=== PATIENT | male | born 1970 | race African-American/Black ===

== ENCOUNTER 2016-10-14 15:31 | Emergency (ER) | payer OTHER ==
[2016-10-14] MEDS ORDERED: Ketorolac Tromethamine 60 MG/2 ML VIAL ONE (15:57)
--- NOTE | 2016-10-14 17:10 | PICIS ---
[facility] EMERGENCY RECORD TRIAGE (15:42 LGIB) PATIENT: NAME: Sergei Kang, AGE: 45, GENDER: male, : Fri1970, TIME OF GREET: FriOct 14, 2016 15:31, PREFERRED LANGUAGE: Kiswahili, ETHNICITY: Not or , ECODE BILLING MAP: [facility], SSN: [id number], Zip Code: [address], KG WEIGHT: 92.99, PHONE: , , , PERSON ID: [id number], PCP: MD Castillo Kyle. TRIAGE NOTES: chronic back pain but today feels like he pulled his back. having sharp pain. had Tylenol-3 [id number]. COMPLAINT: back pain. ADMISSION: URGENCY: 4 Non Urgent, ADMISSION SOURCE: Home, TRANSPORT: CAR, BED: ER -03. PROVIDERS: TRIAGE NURSE: Sulema Taylor RN. KNOWN ALLERGIES No Known Drug Allergies CURRENT MEDICATIONS (15:43 LGIB) None VITAL SIGNS VITAL SIGNS: BP: 130/82, Pulse: 58, Resp: 16 (Non-Labored), Temp: 98.2 (Oral), Pain: 10, O2 sat: 97 on Room Air, Time: 10/14/2016 15:50. (15:50 LGIB) BP: 120/69, Pulse: 65, Resp: 16 (Non-Labored), Pain: 6, O2 sat: 97 on Room Air, Time: 10/14/2016 16:45. (16:45 LGIB) NURSING ASSESSMENT: BACK (15:55 LGIB) CONSTITUTIONAL: Complex assessment performed, Patient arrives, via hospital wheelchair, Gait steady, History obtained from patient, Patient appears, in distress due to pain, Patient cooperative, Patient alert, Oriented to person, place and time, Skin warm, Skin dry, Skin normal in color, Mucous membranes pink, Mucous membranes moist, Patient is well-groomed, Patient complains of back pain, strained back this morning. pt with chronic back pain from a previous injury. PAIN: aching pain, to the lower back, Onset of pain 10/14/2016, on a scale 0-10 patient rates pain as 10, Nothing has been tried to alleviate the pain. BACK: Right radial pulse +3(easily palpated, considered normal), Left radial pulse +3(easily palpated, considered normal), Left dorsalis pedis pulse +3(easily palpated, considered normal), Right dorsalis pedis pulse +3(easily palpated, considered normal). NECK: Neck assessment findings include trachea midline. SAFETY: Side rails up, Cart/Stretcher in lowest position, Family at bedside, Call light within reach, Hospital ID band on. NURSING PROCEDURE: DISCHARGE NOTE (16:45 LGIB) DISCHARGE: Patient discharged to home, ambulating without &a-1R&a+25V*p+0X*m5261G*c202B*c15G*c2P*p-0X&a-25V&a+1R Name: Sergei Kang : 1970 M45 MedRec: [id number] AcctNum: [id number] Prepared: [facility] Oct 17, 2016 10:53 by Interface Page 1 of 6 pMD [facility] EMERGENCY RECORD assistance, family driving, accompanied by //partner, Summary of Care printed/ provided, Patient requested and was provided an electronic copy of Discharge Instructions, Discharge instructions given to patient, Simple or moderate discharge teaching performed, Prescriptions given and instructions on side effects given, Above person(s) verbalized understanding of discharge instructions and follow-up care, Patient treated and evaluated by physician. BELONGINGS: Belongings and valuables with patient at time of discharge include:, Belongings remain with patient, Valuables remain with patient. MEDICATION ADMINISTRATION SUMMARY Drug Name: ketorolac intramuscular, Dose Ordered: 60 mg, Route: Intramuscular, Status: Given, Time: 16:05 10/14/2016, Drug Name: morphine injection, Dose Ordered: 8 mg, Route: Intramuscular, Status: Given, Time: 16:03 10/14/2016, Detailed record available in Medication Service section. MEDICATION SERVICE ketorolac intramuscular: Order: ketorolac intramuscular (ketorolac tromethamine) - Dose: 60 mg : Intramuscular Ordered by: Tao Benson DO Entered by: Tao Benson DO FriOct 14, 2016 15:49 , Acknowledged by: Sulema Taylor RN FriOct 14, 2016 15:51 Documented as given by: Sulema Taylor RN FriOct 14, 2016 16:05 Patient, Medication, Dose, Route and Time verified prior to administration. IM medication, Medication administered to right buttock, Correct patient, time, route, dose and medication confirmed prior to administration, Patient advised of actions and side-effects prior to administration, Allergies confirmed and medications reviewed prior to administration, Patient in position of comfort, Side rails up, Cart in lowest position, Family at bedside. : Follow Up : Decreased pain. (16:46 LGIB) morphine injection: Order: morphine injection (morphine sulfate) - Dose: 8 mg : Intramuscular Schedule: Now Ordered by: Tao Benson DO Entered by: Tao Benson DO FriOct 14, 2016 15:49 , Acknowledged by: Sulema Taylor RN FriOct 14, 2016 15:51 Documented as given by: Sulema Taylor RN FriOct 14, 2016 16:03 Patient, Medication, Dose, Route and Time verified prior to administration. IM medication, Medication administered to left buttock, Correct patient, time, route, dose and medication confirmed prior to administration, Patient advised of actions and side-effects prior to administration, Allergies confirmed and medications reviewed prior to administration, Patient in position of comfort, Side rails up, Cart in lowest position, Family at bedside. &a-1R&a+25V*p+0X*q7560A*c202B*c15G*c2P*p-0X&a-25V&a+1R Name: Sergei Kang : 1970 M45 MedRec: [id number] AcctNum: [id number] Prepared: FriOct 17, 2016 10:53 by Interface Page 2 of 6 pMD [facility] EMERGENCY RECORD : Follow Up : Decreased pain. (16:46 LGIB) HPI BACK (21:29 MBRI) CHIEF COMPLAINT: Patient presents for evaluation of pain, to the lower back. HISTORIAN: History provided by patient. MECHANISM OF INJURY: No domestic violence associated with this incident, Not work related, Pt bent to tie his shoes and felt his back strain. He then sneezed and felt it get much worse. LOCATION: Symptoms are localized to the back, left lumbar region, right lumbar region, No radiation back to front, No radiation to the groin, Pain has not moved in location over time. QUALITY: Pain is dull in nature, described as aching. SEVERITY: Maximum severity of symptoms severe, Currently symptoms are severe. TIME COURSE: Sudden onset of symptoms, 1 day, Symptoms are worsening. ASSOCIATED WITH: No associated symptoms, No associated abdominal pain, No associated bladder incontinence, No associated bowel incontinence, No associated dysuria, No associated fever, No associated inability to ambulate, No associated motor weakness, No associated numbness, No associated problems with urination, No associated radiation of pain, No associated tingling, Denies any other complaints. EXACERBATED BY: Patient's condition exacerbated by extension, Patient's condition exacerbated by flexion, Patient's condition exacerbated by movement, Patient's condition exacerbated by rotation, Patient's condition exacerbated by walking. RELIEVED BY: Patient's condition relieved by nothing. RISK FACTORS: No malignancy risks identified, No herniated disc risks identified, No risk factors for thoracic aortic dissection, No abdominal aortic aneurysm risk factors, No epidural bleed risk factors, No epidural abcess risk factors. ROS (21:29 MBRI) CONSTITUTIONAL: Negative constitutional review of systems, Historian denies chills, denies fever. EYES: Negative eye review of systems. ENT: Historian denies rhinorrhea, denies sore throat. CARDIOVASCULAR: Historian denies chest pain, denies dyspnea on exertion. RESPIRATORY: Historian denies cough, denies shortness of breath. GI: Negative gastrointestinal review of systems, Historian denies abdominal pain, denies diarrhea, denies nausea, denies vomiting. GENITOURINARY MALE: Historian denies dysuria, denies hematuria, denies incontinence, denies urinary frequency, denies urine output changes, denies urinary retention. MUSCULOSKELETAL: Historian reports back pain, denies fall, denies injury, denies neck pain. . SKIN: Negative skin review of systems, Historian denies skin changes. &a-1R&a+25V*p+0X*y8803O*c202B*c15G*c2P*p-0X&a-25V&a+1R Name: Sergei Kang : 1970 M45 MedRec: [id number] AcctNum: [id number] Prepared: Giselle Oct 17, 2016 10:53 by Interface Page 3 of 6 pMD [facility] EMERGENCY RECORD NEUROLOGIC: Negative neurologic review of systems, Historian denies focal weakness, denies sensory changes. PAST MEDICAL HISTORY (15:43 LGIB) MEDICAL HISTORY: Past medical history includes history of hyperlipidemia, high cholesterol. MALE SURGICAL HISTORY: Patient has no surgical history. PSYCHIATRIC HISTORY: No previous psychiatric history. SOCIAL HISTORY: Patient denies alcohol use, Patient denies drug use, Patient has no smoking history. PHYSICAL EXAM (21:29 MBRI) CONSTITUTIONAL: Vital Signs Reviewed, Nursing notes reviewed. HEAD: Head exam included findings of head atraumatic, normocephalic. NECK: Neck exam normal, Neck exam included findings of normal range of motion, Trachea midline. RESPIRATORY CHEST: Respiratory exam included findings of no respiratory distress, Breath sounds clear, No wheezing, No rales, No rhonchi. CARDIOVASCULAR: Cardiovascular exam included findings of heart rate regular rate and rhythm, Heart sounds normal, Carotids normal. ABDOMEN MALE: Abdominal exam included findings of abdomen nontender, Bowel sounds normal, no distension, no peritoneal signs, no rigidity, no guarding, no rebound. BACK: Back exam included findings of normal inspection, Range of motion, decreased, limited by pain, Tenderness, paraspinal to the right lower and left lower, no costovertebral angle tenderness, Straight leg raise, with pain on the left at 10 degrees, with pain on the right at 30 degrees. LOWER EXTREMITY: Lower extremity exam included findings of inspection normal, Range of motion normal, Motor strength normal, Sensation intact, Pedal pulse normal, no cyanosis, no clubbing, no edema, no calf tenderness. NEURO: Neuro exam findings include patient oriented to person, place and time, Speech normal, Gait normal, Deep tendon reflexes normal, no clonus, No focal motor or sensory deficits noted in the lower ext bilaterally. SKIN: Skin exam included findings of skin warm, dry, and normal in color. EVENTS TRANSFER: Triage to Emergency Emergency Room -03. (FriOct 14, 2016 15:42 LGIB) Removed from Emergency Emergency Room -03. (16:49 LGIB) O2SAT INTERPRETATION (21:32 MBRI) O2SAT: Oxygen saturation interpretation: Normal. DOCTOR NOTES (16:38 MBRI) &a-1R&a+25V*p+0X*i0937C*c202B*c15G*c2P*p-0X&a-25V&a+1R Name: Sergei Kang : 1970 M45 MedRec: [id number] AcctNum: [id number] Prepared: Giselle Oct 17, 2016 10:53 by Interface Page 4 of 6 pMD [facility] EMERGENCY RECORD TEXT: Pt evaluated at this time and appears stable. No findings to suggest sig illness or issue requiring hospitalization or further intervention at this time. Eval and exam reveals back pain or a musculoskeletal etiology without any present neuro or vasc issues or emergencies. I rec conservative type therapy and PMD follow-up. Plan of care discussed with pt and questions answered. Pt was informed of reasons for follow-up and return and they stated understanding. Pt is stable for d/c home at this time. PROBLEM LIST No recorded problems DIAGNOSIS (16:38 MBRI) FINAL: PRIMARY: LOW BACK PAIN. DISPOSITION PATIENT: Disposition Type: Discharge, Disposition: *Discharge Home, Condition: Improved. (16:38 MBRI) Patient left the department. (16:49 LGIB) INSTRUCTION (16:40 MBRI) DISCHARGE: LOW BACK PAIN GENERAL. FOLLOWUP: MD Anna, [place], [facility], [address] [place] [address], , Follow up with Primary Care Physician in 10-14 days. SPECIAL: Please return for any further issues or concerns, we would be happy to see you. We hope you feel better soon. Follow-up with your PCP Follow-up with your primary physician as needed Tylenol or Advil for Pain. PRESCRIPTION (16:39 MBRI) Motrin: TABLET : 600 mg : ORAL : Quantity: 1 Unit: tab(s) Route: ORAL Schedule: every 6 hours PRN Dispense: 60 May substitute. Refills: No Refills POTENTIAL CONTRAINDICATED INTERACTION: ketorolac intramuscular (ketorolac tromethamine) Override Rationale: Benefits outweigh risks, Patient no longer on medication. NOTES: No refills. traMADol: TABLET : 50 mg : ORAL : Quantity: 1 Unit: tab(s) Route: ORAL Schedule: every 6 hours PRN Dispense: 20 May substitute. Refills: No Refills . NOTES: ^s=No refills No refills. IMAGING (16:50 LGIB) *DISCHARGE INSTRUCTIONS RECEIPT: Image captured from scanner. *SUPPLY CHARGE SHEET: Image captured from scanner. &a-1R&a+25V*p+0X*d8492I*c202B*c15G*c2P*p-0X&a-25V&a+1R Name: Sergei Kagn : 1970 [facility] MedRec: [id number] AcctNum: [id number] Prepared: FriOct 17, 2016 10:53 by Interface Page 5 of 6 pMD [facility] EMERGENCY RECORD ADMIN (FriOct 17, 2016 10:47 MBRI) DIGITAL SIGNATURE: DO Benson Matthew. [place]: LGIB=KATE Taylor, Sulema MBRI=DO Benson Matthew &a-1R&a+25V*p+0X*t1924X*c202B*c15G*c2P*p-0X&a-25V&a+1R Name: Sergei Kang : 1970 5 MedRec: [id number] AcctNum: [id number] Prepared: FriOct 17, 2016 10:53 by Interface Page 6 of 6 pMD MTDD
--- NOTE | 2016-10-14 17:13 | ERRECORD ---
[facility] EMERGENCY RECORD HPI BACK (21:29 MBRI) CHIEF COMPLAINT: Patient presents for evaluation of pain, to the lower back. HISTORIAN: History provided by patient. MECHANISM OF INJURY: No domestic violence associated with this incident, Not work related, Pt bent to tie his shoes and felt his back strain. He then sneezed and felt it get much worse. LOCATION: Symptoms are localized to the back, left lumbar region, right lumbar region, No radiation back to front, No radiation to the groin, Pain has not moved in location over time. QUALITY: Pain is dull in nature, described as aching. SEVERITY: Maximum severity of symptoms severe, Currently symptoms are severe. TIME COURSE: Sudden onset of symptoms, 1 day, Symptoms are worsening. ASSOCIATED WITH: No associated symptoms, No associated abdominal pain, No associated bladder incontinence, No associated bowel incontinence, No associated dysuria, No associated fever, No associated inability to ambulate, No associated motor weakness, No associated numbness, No associated problems with urination, No associated radiation of pain, No associated tingling, Denies any other complaints. EXACERBATED BY: Patient's condition exacerbated by extension, Patient's condition exacerbated by flexion, Patient's condition exacerbated by movement, Patient's condition exacerbated by rotation, Patient's condition exacerbated by walking. RELIEVED BY: Patient's condition relieved by nothing. RISK FACTORS: No malignancy risks identified, No herniated disc risks identified, No risk factors for thoracic aortic dissection, No abdominal aortic aneurysm risk factors, No epidural bleed risk factors, No epidural abcess risk factors. ROS (21:29 MBRI) CONSTITUTIONAL: Negative constitutional review of systems, Historian denies chills, denies fever. EYES: Negative eye review of systems. ENT: Historian denies rhinorrhea, denies sore throat. CARDIOVASCULAR: Historian denies chest pain, denies dyspnea on exertion. RESPIRATORY: Historian denies cough, denies shortness of breath. GI: Negative gastrointestinal review of systems, Historian denies abdominal pain, denies diarrhea, denies nausea, denies vomiting. GENITOURINARY MALE: Historian denies dysuria, denies hematuria, denies incontinence, denies urinary frequency, denies urine output changes, denies urinary retention. MUSCULOSKELETAL: Historian reports back pain, denies fall, denies injury, denies neck pain. . SKIN: Negative skin review of systems, Historian denies skin changes. NEUROLOGIC: Negative neurologic review of systems, Historian denies focal weakness, denies sensory changes. &a-1R&a+25V*p+0X*g6557O*c202B*c15G*c2P*p-0X&a-25V&a+1R Name: Sergei Kang : 1970 M45 MedRec: [id number] AcctNum: [id number] Prepared: Giselle Oct 17, 2016 10:53 by Interface Page 1 of 3 pMD [facility] EMERGENCY RECORD PAST MEDICAL HISTORY (15:43 LGIB) MEDICAL HISTORY: Past medical history includes history of hyperlipidemia, high cholesterol. MALE SURGICAL HISTORY: Patient has no surgical history. PSYCHIATRIC HISTORY: No previous psychiatric history. SOCIAL HISTORY: Patient denies alcohol use, Patient denies drug use, Patient has no smoking history. KNOWN ALLERGIES No Known Drug Allergies CURRENT MEDICATIONS (15:43 LGIB) None VITAL SIGNS VITAL SIGNS: BP: 130/82, Pulse: 58, Resp: 16 (Non-Labored), Temp: 98.2 (Oral), Pain: 10, O2 sat: 97 on Room Air, Time: 10/14/2016 15:50. (15:50 LGIB) BP: 120/69, Pulse: 65, Resp: 16 (Non-Labored), Pain: 6, O2 sat: 97 on Room Air, Time: 10/14/2016 16:45. (16:45 LGIB) PHYSICAL EXAM (21:29 MBRI) CONSTITUTIONAL: Vital Signs Reviewed, Nursing notes reviewed. HEAD: Head exam included findings of head atraumatic, normocephalic. NECK: Neck exam normal, Neck exam included findings of normal range of motion, Trachea midline. RESPIRATORY CHEST: Respiratory exam included findings of no respiratory distress, Breath sounds clear, No wheezing, No rales, No rhonchi. CARDIOVASCULAR: Cardiovascular exam included findings of heart rate regular rate and rhythm, Heart sounds normal, Carotids normal. ABDOMEN MALE: Abdominal exam included findings of abdomen nontender, Bowel sounds normal, no distension, no peritoneal signs, no rigidity, no guarding, no rebound. BACK: Back exam included findings of normal inspection, Range of motion, decreased, limited by pain, Tenderness, paraspinal to the right lower and left lower, no costovertebral angle tenderness, Straight leg raise, with pain on the left at 10 degrees, with pain on the right at 30 degrees. LOWER EXTREMITY: Lower extremity exam included findings of inspection normal, Range of motion normal, Motor strength normal, Sensation intact, Pedal pulse normal, no cyanosis, no clubbing, no edema, no calf tenderness. NEURO: Neuro exam findings include patient oriented to person, place and time, Speech normal, Gait normal, Deep tendon reflexes normal, no clonus, No focal motor or sensory deficits noted in the lower ext bilaterally. SKIN: Skin exam included findings of skin warm, dry, and normal &a-1R&a+25V*p+0X*s8924U*c202B*c15G*c2P*p-0X&a-25V&a+1R Name: Sergei Kang : 1970 M45 MedRec: [id number] AcctNum: [id number] Prepared: [facility] Oct 17, 2016 10:53 by Interface Page 2 of 3 pMD [facility] EMERGENCY RECORD in color. MEDICATION ADMINISTRATION SUMMARY Drug Name: ketorolac intramuscular, Dose Ordered: 60 mg, Route: Intramuscular, Status: Given, Time: 16:05 10/14/2016, Drug Name: morphine injection, Dose Ordered: 8 mg, Route: Intramuscular, Status: Given, Time: 16:03 10/14/2016, Detailed record available in Medication Service section. DOCTOR NOTES (16:38 MBRI) TEXT: Pt evaluated at this time and appears stable. No findings to suggest sig illness or issue requiring hospitalization or further intervention at this time. Eval and exam reveals back pain or a musculoskeletal etiology without any present neuro or vasc issues or emergencies. I rec conservative type therapy and PMD follow-up. Plan of care discussed with pt and questions answered. Pt was informed of reasons for follow-up and return and they stated understanding. Pt is stable for d/c home at this time. PROBLEM LIST No recorded problems DIAGNOSIS (16:38 MBRI) FINAL: PRIMARY: LOW BACK PAIN. PRESCRIPTION (16:39 MBRI) Motrin: TABLET : 600 mg : ORAL : Quantity: 1 Unit: tab(s) Route: ORAL Schedule: every 6 hours PRN Dispense: 60 May substitute. Refills: No Refills POTENTIAL CONTRAINDICATED INTERACTION: ketorolac intramuscular (ketorolac tromethamine) Override Rationale: Benefits outweigh risks, Patient no longer on medication. NOTES: No refills. traMADol: TABLET : 50 mg : ORAL : Quantity: 1 Unit: tab(s) Route: ORAL Schedule: every 6 hours PRN Dispense: 20 May substitute. Refills: No Refills . NOTES: ^s=No refills No refills. DISPOSITION PATIENT: Disposition Type: Discharge, Disposition: *Discharge Home, Condition: Improved. (16:38 MBRI) Patient left the department. (16:49 IB) [place]: LGIB=KATE Taylor, Sulema MBRI=DO Benson Matthew &a-1R&a+25V*p+0X*p7615N*c202B*c15G*c2P*p-0X&a-25V&a+1R Name: Sergei Kang : 1970 M45 MedRec: [id number] AcctNum: [id number] Prepared: Giselle Oct 17, 2016 10:53 by Interface Page 3 of 3 pMD MTDD
== END 2016-10-14 16:45 | disposition home or self-care (01) ==
LOC: BURERS 15:31
DX: M54.5 Low back pain (principal); E78.5 Hyperlipidemia, unspecified; E78.00 Pure hypercholesterolemia, unspecified; X58.XXXA Exposure to other specified factors, initial encounter
CPT/HCPCS: 96372; J1885; J2270

== ENCOUNTER 2019-09-27 11:56 | Outpatient (CLI) | payer OTHER ==
--- NOTE | 2019-09-27 17:42 | RAD ---
Three views show no fracture. The disc spaces appear normal except for slight narrowing at L5-S1. O steophytes are seen here, as well. The rest of the spine showed no acute change. The SI joints are unremarkable in appearance. There is slight scoliosis, convex right, at the thoraco lumbar junction. IMPRESSION: Mild degenerative changes at L5-S1. Given the symptoms listed, an MRI could be helpful. POS: HOME
== END 2019-09-27 11:57 | disposition home or self-care (01) ==
LOC: BURRAD 11:56
PROVIDERS: ATTEND Physician Assistant
DX: M54.32 Sciatica, left side (principal); M47.817 Spondylosis without myelopathy or radiculopathy, lumbosacral region
CPT/HCPCS: 72100